=== PATIENT | female | born 1945 | race Caucasian/White ===

== ENCOUNTER 2016-07-15 15:04 | Emergency (ER) | payer OTHER ==
[~2016-07-15] VITALS: Ht 152.4 cm; Wt 86.6 kg
--- NOTE | ~2016-07-15 | EKG ---
[address] [address] [place] [address] ELECTROCARDIOGRAM REPORT Name: ISRAEL RIVERA [id number] Admission: 07/15/16 Attend Phys: Discharge: 07/15/16 Date of : 41 Report #: [id number] THIS REPORT FOR: //name// [facility] ED Test Date: 2016-07-15 Test Time: 15:32:07 Pat Name: ISRAEL RIVERA Department: Room: Gender: F Process Improvement Specialist: Felicita Hoang : 1945 Requested By: Radha Jordan Order Number: [id number] MD: Jesus Navarrete Measurements Intervals [place] Rate: 82 P: 44 WA: 262 QRS: 25 QRSD: 96 T: -7 QT: 369 QTc: 431 Interpretive Statements Sinus rhythm Prolonged WA interval Probable left atrial enlargement Borderline T abnormalities, inferior leads No previous ECG available for comparison Electronically Signed On 07-16-2016 16:40:45 CDT by Jesus Navarrete [email or web address] <ELECTRONICALLY SIGNED> By: Jesus Navarrete MD, [facility] 07/16/16 1640 1532 1532 Jesus Navarrete MD, FACC /EPI
[2016-07-15] MEDS ORDERED: ZANTAC 150MG T150 MG PO (16:27)
[2016-07-15] MEDS ORDERED: FLAX, FISH & B1 EACH PO (16:27)
[2016-07-15] MEDS ORDERED: IBUPROFEN 200200 M1 PO (16:28)
[2016-07-15] MEDS ORDERED: CENTRUM SILVER1 EAC5 PO (16:28)
[2016-07-15] MEDS ORDERED: CALCIUM 600 +1 EAC1 PO (16:29)
[2016-07-15] MEDS ORDERED: VITAMINC500 PO (16:29)
[2016-07-15 16:34] LABS: ABSOLUTE NEUTROPHILS 6.1 thou/uL (1.4-8.2); BASOPHILS 0.4 % (0.0-2.0); EOSINOPHILS 0.4 % (0.0-3.0); HEMATOCRIT 40.7 % (37.0-47.0); HEMOGLOBIN 13.6 gm/dL (12.0-15.0); LYMPHOCYTES 26.7 % (24.0-44.0); MCH 31.9 pg (26.0-34.0); MCHC 33.5 g/dL (28.0-37.0); MCV 95.3 fL (80.0-100.0); MONOCYTES 8.1 % (1.0-8.0); PLATELET COUNT 214 thou/uL (150-400); POLYS 64.4 % (36.0-66.0); RBC 4.27 mil/uL (4.20-5.00); RDW 13.2 % (10.5-14.5); WBC 9.6 thou/uL (4.0-11.0)
[2016-07-15 16:38] LABS: MANUAL DIFF NO
[2016-07-15 16:46] LABS: CALCIUM 9.4 mg/dL (8.5-10.1); CREATININE 0.8 mg/dL (0.6-1.0); POTASSIUM 4.1 mmol/L (3.5-5.1)
[2016-07-15 16:51] LABS: ALBUMIN 3.6 g/dL (3.4-5.0); TOTAL BILIRUBIN 0.4 mg/dL (<0.1-1.0); TOTAL PROTEIN 7.7 g/dL (6.4-8.2)
[2016-07-15 17:13] VITALS: BP 164/68
== END 2016-07-15 17:20 | disposition home or self-care (01) ==
LOC: ER 15:04
PROVIDERS: Physician Assistant
DX: R20.2 Paresthesia of skin (principal); R51 Headache; I10 Essential (primary) hypertension

== ENCOUNTER 2017-12-02 17:59 | Emergency (ER) | payer OTHER ==
[~2017-12-02] VITALS: Ht 157.5 cm; Wt 83.5 kg
--- NOTE | ~2017-12-02 | EKG ---
[address] [address] [facility] [place] [address] ELECTROCARDIOGRAM REPORT Name: ISRAEL RIVERA Room #: [facility] [place]#: [id number] Admission: 12/02/17 Attend Phys: Discharge: 12/02/17 Date of : 41 Report #: [id number] THIS REPORT FOR: //name// [facility] ED Test Date: 2017-12-02 Test Time: 18:37:01 Pat Name: ISRAEL RIVERA Department: Room: Gender: F Educational Program Director: [facility] : 1945 Requested By: Hector Senior Order Number: [id number] MD: Jesus Navarrete Measurements Intervals [place] Rate: 55 P: 0 AR: 220 QRS: 39 QRSD: 96 T: 3 QT: 455 QTc: 436 Interpretive Statements Second degree AV block, Mobitz I Compared to ECG 07/15/2016 15:32:07 Second-degree AV block, Mobitz type I (Tatiana) now present Electronically Signed On 12-04-2017 8:31:41 CDT by Jesus Navarrete [email or web address] <ELECTRONICALLY SIGNED> By: Jesus Navarrete MD, [facility] 12/04/17 0831 183 36 Jesus Navarrete MD, [facility] /EPI
[~2017-12-02 17:59] MED LIST: CALCIUM 600 +1 EAC1 PO; CENTRUM SILVER1 EAC5 PO; FLAX, FISH & B1 EACH PO; IBUPROFEN 200200 M1 PO; VITAMINC500 PO; ZANTAC 150MG T150 MG PO
[2017-12-02] MEDS ORDERED: CLOBETASOL EMOL15 GM TOP (18:10)
[2017-12-02 18:23] LABS: ABSOLUTE NEUTROPHILS 6.8 thou/uL (1.4-8.2); BASOPHILS 0.6 % (0.0-2.0); EOSINOPHILS 0.6 % (0.0-3.0); HEMOGLOBIN 13.5 gm/dL (12.0-15.0); LYMPHOCYTES 23.2 % (24.0-44.0); MCH 32.9 pg (26.0-34.0); MCHC 34.7 g/dL (28.0-37.0); MCV 94.8 fL (80.0-100.0); PLATELET COUNT 234 thou/uL (150-400); POLYS 66.6 % (36.0-66.0); RBC 4.11 mil/uL (4.20-5.00); RDW 12.6 % (10.5-14.5); WBC 10.2 thou/uL (4.0-11.0)
[2017-12-02 18:27] LABS: ANION GAP 9 mmol/L (7-16); BUN 14 mg/dL (7-18); CALCIUM 8.9 mg/dL (8.5-10.1); CHLORIDE 97 mmol/L (98-107); CO2 26 mmol/L (21-32); CREATININE 0.8 mg/dL (0.6-1.0); GLUCOSE 129 mg/dL (74-106); POTASSIUM 3.5 mmol/L (3.5-5.1); SODIUM 132 mmol/L (136-145)
[2017-12-02 18:35] LABS: ALBUMIN 3.3 g/dL (3.4-5.0); LIPASE 256 U/L (73-393); SGOT 21 U/L (15-37); SGPT 24 U/L (30-65); TOTAL BILIRUBIN 0.4 mg/dL (<0.1-1.0); TOTAL PROTEIN 7.7 g/dL (6.4-8.2); TROPONIN-I <0.06 ng/mL (<0.06)
[2017-12-02 18:48] LABS: URINE BILIRUBIN NEGATIVE (Negative); URINE BLOOD TRACE (Negative); URINE COLOR YELLOW; URINE GLUCOSE-RANDOM* NEGATIVE (Negative); URINE KETONES NEGATIVE (Negative); URINE PROTEIN (DIPSTICK) NEGATIVE (Negative); URINE UROBILINOGEN 0.2 E.U./dl (0.2-1.0)
[2017-12-02 18:49] LABS: URINE CLARITY HAZY; URINE LEUKOCYTES-REFLEX 1+ (Negative); URINE NITRITE-REFLEX POSITIVE (Negative)
[2017-12-02 19:01] LABS: SQUAMOUS >10 Many /LPF (0-3); URINE WBC-REFLEX >25 Many /HPF (0-5)
[2017-12-02 19:02] LABS: BACTERIA-REFLEX >30 Many /HPF (None Seen); CASTS None Seen /LPF (None Seen); CRYSTALS None Seen /LPF (None Seen); URINE RBC 0-2 Rare /HPF (0-2)
[2017-12-02] MEDS ORDERED: PRILOSEC 20 MG20 MG PO (19:26)
[2017-12-02] MEDS ORDERED: TRAMADOL 50 MG50 MG PO (19:26)
[2017-12-02] MEDS ORDERED: KEFLEX500 M1 PO (19:44)
== END 2017-12-02 19:55 | disposition home or self-care (01) ==
LOC: ER 17:59
PROVIDERS: Emergency Medicine
DX: J98.11 Atelectasis (principal); I10 Essential (primary) hypertension; I44.1 Atrioventricular block, second degree; N39.0 Urinary tract infection, site not specified; M47.899 Other spondylosis, site unspecified

== ENCOUNTER 2019-09-06 10:34 | Emergency (ER) | payer OTHER ==
[~2019-09-06] VITALS: Ht 162.6 cm; Wt 77.1 kg
[~2019-09-06 10:34] MED LIST changes: +CLOBETASOL EMOL15 GM TOP; +KEFLEX500 M1 PO; +PRILOSEC 20 MG20 MG PO; +TRAMADOL 50 MG50 MG PO
[2019-09-06 11:25] LABS: ABSOLUTE NEUTROPHILS 6.9 thou/uL (1.4-8.2); BASOPHILS 0.3 % (0.0-2.0); EOSINOPHILS 0.1 % (0.0-3.0); HEMATOCRIT 42.1 % (37.0-47.0); HEMOGLOBIN 14.6 gm/dL (12.0-15.0); LYMPHOCYTES 13.8 % (24.0-44.0); MCH 33.1 pg (26.0-34.0); MCHC 34.7 g/dL (28.0-37.0); MCV 95.6 fL (80.0-100.0); PLATELET COUNT 243 thou/uL (150-400); POLYS 76.8 % (36.0-66.0); RBC 4.41 mil/uL (4.20-5.00); RDW 12.6 % (10.5-14.5); WBC 8.9 thou/uL (4.0-11.0)
[2019-09-06 11:37] LABS: CALCIUM 8.9 mg/dL (8.5-10.1); CREATININE 0.7 mg/dL (0.6-1.0); POTASSIUM 3.9 mmol/L (3.5-5.1)
[2019-09-06 11:44] LABS: ALBUMIN 3.5 g/dL (3.4-5.0); TOTAL BILIRUBIN 0.6 mg/dL (0.2-1.0); TOTAL PROTEIN 8.1 g/dL (6.4-8.2)
[2019-09-06 13:06] LABS: URINE BILIRUBIN NEGATIVE (Negative); URINE BLOOD 1+ (Negative); URINE CLARITY CLEAR; URINE COLOR YELLOW; URINE GLUCOSE-RANDOM* NEGATIVE (Negative); URINE KETONES NEGATIVE (Negative); URINE LEUKOCYTES-REFLEX 1+ (Negative); URINE NITRITE-REFLEX NEGATIVE (Negative); URINE PROTEIN (DIPSTICK) NEGATIVE (Negative); URINE UROBILINOGEN 0.2 E.U./dl (0.2-1.0)
[2019-09-06 13:14] LABS: BACTERIA-REFLEX >30 Many /HPF (None Seen); CRYSTALS None Seen /LPF (None Seen); SQUAMOUS 0-3 Few /LPF (0-3); URINE RBC None Seen /HPF (0-2); URINE WBC-REFLEX >25 Many /HPF (0-5)
[2019-09-06] MEDS ORDERED: KEFLEX500 M1 PO (16:26)
[2019-09-06 16:42] VITALS: BP 153/68
== END 2019-09-06 16:49 | disposition home or self-care (01) ==
LOC: ER 10:34
PROVIDERS: Emergency Medicine
DX: S42.252A Displaced fracture of greater tuberosity of left humerus, initial encounter for closed fracture (principal); N39.0 Urinary tract infection, site not specified; I10 Essential (primary) hypertension; Z79.899 Other long term (current) drug therapy; W18.39XA Other fall on same level, initial encounter; Y93.89 Activity, other specified; Y92.89 Other specified places as the place of occurrence of the external cause; Y99.8 Other external cause status

== ENCOUNTER 2019-09-24 18:38 | Inpatient (IN) | payer OTHER ==
[~2019-09-24] VITALS: Ht 149.9 cm; Wt 68.9 kg
[2019-09-24 18:50] VITALS: BP 141/78
[2019-09-24 22:51] LABS: URINE BILIRUBIN NEGATIVE (Negative); URINE BLOOD 1+ (Negative); URINE CLARITY CLEAR; URINE COLOR YELLOW; URINE GLUCOSE-RANDOM* NEGATIVE (Negative); URINE KETONES NEGATIVE (Negative); URINE NITRITE-REFLEX NEGATIVE (Negative); URINE PROTEIN (DIPSTICK) NEGATIVE (Negative); URINE UROBILINOGEN 0.2 E.U./dl (0.2-1.0)
[2019-09-24] MEDS ORDERED: TYLENOL EXTRA500 MG PO (22:55)
[2019-09-24] MEDS ORDERED: PROBIOTIC1 EAC6 PO (22:56)
[2019-09-24] MEDS ORDERED: ALEVE220 MG PO (22:56)
[2019-09-24 22:58] LABS: URINE LEUKOCYTES-REFLEX 1+ (Negative)
[2019-09-24 23:03] LABS: BASOPHILS 0.3 % (0.0-2.0); EOSINOPHILS 0.1 % (0.0-3.0); HEMATOCRIT 39.7 % (37.0-47.0); HEMOGLOBIN 13.6 gm/dL (12.0-15.0); LYMPHOCYTES 18.1 % (24.0-44.0); MCH 32.9 pg (26.0-34.0); MCHC 34.3 g/dL (28.0-37.0); MONOCYTES 10.3 % (1.0-8.0); PLATELET COUNT 201 thou/uL (150-400); POLYS 71.2 % (36.0-66.0); RBC 4.13 mil/uL (4.20-5.00); WBC 11.2 thou/uL (4.0-11.0)
[2019-09-24 23:24] LABS: BACTERIA-REFLEX 1-9 Few /HPF (None Seen); CASTS None Seen /LPF (None Seen); CRYSTALS None Seen /LPF (None Seen); MUCUS 0-3 Light strn/LPF (None Seen); SQUAMOUS 4-10 Moderate /LPF (0-3); URINE RBC 3-10 Few /HPF (0-2); URINE WBC-REFLEX 6-15 Few /HPF (0-5)
[2019-09-24 23:26] LABS: CALCIUM 8.2 mg/dL (8.5-10.1); CREATININE 0.7 mg/dL (0.6-1.0); POTASSIUM 3.8 mmol/L (3.5-5.1)
[2019-09-25 00:49] VITALS: BP 163/80
[2019-09-25 01:20] VITALS: BP 158/79
[2019-09-25 02:00] VITALS: BP 168/62
--- NOTE | 2019-09-25 03:58 | NUR ---
PT ARRIVED FROM THE ER @0130 A&OX2 FORGETFULL WAS ABLE TO ANSWER BASIC QUESTION. ADMISSION DONE AND PT ORIENTED TO THE UNIT. IV INTACT AND FLUIDS INFUSING. LEFT SHOULDER SLING INTACT. MORPHINE GIVEN FOR PAIN. RIGHT UPPER ARM BRUISE NOTED. SCDS IN PLACE. PT HOME WHEELCHAIR AT BEDSIDE. FALL PREC IN PLACE AND CALL LIGHT IN REACH WILL CONT TO MONITOR
[2019-09-25 06:12] LABS: URINE BILIRUBIN NEGATIVE (Negative); URINE BLOOD TRACE (Negative); URINE CLARITY CLEAR; URINE COLOR YELLOW; URINE GLUCOSE-RANDOM* NEGATIVE (Negative); URINE KETONES NEGATIVE (Negative); URINE LEUKOCYTES-REFLEX NEGATIVE (Negative); URINE NITRITE-REFLEX NEGATIVE (Negative); URINE PROTEIN (DIPSTICK) NEGATIVE (Negative); URINE SPECIFIC GRAVITY <= 1.005 (1.005-1.035); URINE UROBILINOGEN 0.2 E.U./dl (0.2-1.0)
[2019-09-25 06:46] LABS: MCH 32.5 pg (26.0-34.0); MCHC 33.3 g/dL (28.0-37.0); MCV 97.6 fL (80.0-100.0); RBC 3.99 mil/uL (4.20-5.00); RDW 13.4 % (10.5-14.5); WBC 8.5 thou/uL (4.0-11.0)
[2019-09-25 07:13] LABS: CALCIUM 8.5 mg/dL (8.5-10.1); CREATININE 0.5 mg/dL (0.6-1.0); POTASSIUM 3.7 mmol/L (3.5-5.1)
[2019-09-25 11:32] VITALS: BP 184/79
--- NOTE | 2019-09-25 16:08 | NUR ---
ASSESSMENT: CM REVIEWED CHART. PT WAS ADMITTED AFTER A FALL AT HOME AND COMPLAINING OF RIGHT SHOULDER PAIN. PT JUST RECENTLY HAD A PREVIOUS FALL ON 09/05 AND HER LEFT SHOULDER IS IN AN IMMOBLIZER. PT LIVES AT HOME WITH HER DAUGHTER ISRAEL. CM SPOKE WITH ISRAEL. SHE REPORTS THAT THEY HAVE NO STEPS TO ENTER THE HOME OR ONCE INSIDE. SHE REPORTS PATIENT NORMALLY USES A CANE OR WALKER BUT SINCE SHE HAD THE IMMOBILIZER ON THAT THEY HAD BEEN TRYING TO HELP HER AROUND THE HOUSE AND SHE HAS A WHEELCHAIR. DAUGHTER REPORTS THAT SHE DOES NOT HAVE HH AND HAS NOT BEEN TO A SNF IN THE PAST. PT/OT ORDERED BUT WAITING ON INPUT FROM [facility]. CM WILL CONTINUE TO FOLLOW TO ASSIST NEEDED.
--- NOTE | 2019-09-25 19:45 | NUR ---
PT CARE ASSUMED AT 0700. A&Ox2. FORGETFUL. IV PATENT WITH NO REDNESS OR EDEMA, FLUIDS INFUSING. SCD'S IN PLACE. SLING ON L. SHOULDER. PAIN WELL CONTROLLED WITH PAIN MEDICATION ON BOARD. BM TODAY. EXTERNAL ANDERSEN IN PLACE. COVID TEST PENDING. CT COMPLEETED. RESULTS PENDING. FALL RISK IN PLACE. CALL LIGHT IN PLACE.
[2019-09-25 20:00] VITALS: BP 156/67
--- NOTE | 2019-09-26 02:48 | NUR ---
PT ASSESSED AT START OF SHIFT A&OX3. IV INTACT AND FLUIDS INFUSING. TRAMADOL GIVEN FOR SHOULDER PAIN. EXT FEMALE CATH IN PLACE AND DRAINING. SCD'S, FALL PREC IN PLACE WILL CONT TO MONITOR.
[2019-09-26 03:43] VITALS: BP 154/60
[2019-09-26 07:45] VITALS: BP 152/62
[2019-09-26 08:09] LABS: ALBUMIN 2.5 g/dL (3.4-5.0); CALCIUM 8.2 mg/dL (8.5-10.1); CREATININE 0.5 mg/dL (0.6-1.0); MAGNESIUM 1.7 mg/dL (1.8-2.4); POTASSIUM 3.9 mmol/L (3.5-5.1); TOTAL BILIRUBIN 0.8 mg/dL (0.2-1.0); TOTAL PROTEIN 6.3 g/dL (6.4-8.2)
--- NOTE | 2019-09-26 15:53 | NUR ---
ON-GOING ASSESSMNT: CM REVIEWED CHART. AWAITIONG FURTHER PLANS FROM [facility] PRIOR TO PT WORKING WITH PT/OT. AWAITING THERAPIES TO DETERMINE DISCHARGE NEEDS POSSIBLE SNF PLACEMENT. CM WILL CONTINUE TO FOLLOW,
[2019-09-26 16:00] VITALS: BP 184/80
[2019-09-26 19:48] VITALS: BP 169/62
--- NOTE | 2019-09-27 03:13 | NUR ---
ASSESSED AT START OF SHIFT 1900. PT RESTING IN BED. PAIN MANAGED WITH PO TRAMADOL. SLING NOW ON THE RT SHOULDER PER [facility] DURING THE DAY. EXT FOLLEY CATH INTACT AND DRAINING. FALL PREC IN PLACE. PT SLEPT THROUGH THE NIGHT WILL CONT TO MONITOR.
[2019-09-27 05:16] VITALS: BP 153/87
[2019-09-27 09:15] VITALS: BP 136/72
--- NOTE | 2019-09-27 10:33 | NUR ---
Assumed care of pt at 0700. Pt plesantly confused. Pain controlled with prn pain meds. Shoulder immobilized in place. External female catheter in place. Possible d/c to SNF when insurance auth. Fall precautions in place. Will continue to monitor.
--- NOTE | 2019-09-27 12:17 | NUR ---
ON-GOING ASSESSMENT: CM REVIEWED AND SPOKE WITH ATTENDING. RECOMMENDATIONS ARE FOR SNF. CM DISCUSSED THIS WITH PATIENT AND HER DAUGHTER. DAUGHTER ISRAEL REPORTS THEY HAD A FAMILY FRIEND THAT HAS BEEN TO [facility] BEFORE AND PREFER THERE. [facility] IS IN NETWORK WITH PATIENTS INSURANCE AND CM SENT REFERRAL. CM HEARD BACK FROM MICHELLE IN ADMISSIONS WHO REPORTS THEY CAN MEDICALLY ACCEPT PATIENT AND THEY HAD STARTED THE INSURANCE AUTH PROCESS. CM NOTIFIED PT AND DAUGHTER THAT WE ARE JUST AWAITING AUTH AT THIS TIME. CM FAXED NEGATIVE COVID TEST TO FACILITY. DAUGHTER IS ALSO REQUESTING DPOA PAPERWORK AND CM PROVIDED A PACKET AND PLACED IN PATIENTS ROOM FOR THEM TO COMPLETE AND NOTIFY BEDSIDE RN TO PAGE A NOTARY WHEN DONE. CM VERIFIED WITH ATTENDING THAT PT CAN APPOINT A DPOA AT [facility]. CM WILL AWAIT FURTHER INPUT FROM [facility]. CHART COPY ORDERED.
--- NOTE | 2019-09-27 15:28 | NUR ---
ON-GOING ASSESSMENT: PHYSICAL THERAPY WAS ABLE TO WORK WITH PATIENT TODAY AND RECOMMENDATIONS IS FOR POST ACUTE CARE AT DISCHARGE. DANIELLA DISCUSSED THIS WITH PATIENT AND HER DAUGHTER ISRAEL. DAUGHTER REPORTS THAT SHE WILL HAVE TO REVIEW THE LIST AND CHECK OUT THE REVIEWS ON THE FACILITIES. CM DISCUSSED OPTIONS WITH HER AND SHE REPORTS HAVING A FAMILY FRIEND THAT HAD BEEN TO [facility] AND WANTED A REFERRAL SENT THERE. CM FAXED REFERRAL AND LEFT VM WITH [facility] IN ADMISSIONS. SHE REPORTS THEY ARE FULL THIS WILL BUT WILL HAVE TO CHECK BACK ON MONDAY. CM NOTIFIED PATIENTS DAUGHTER AND SHE IS GOING TO FURTHER REVIEW OTHER OPTIONS SO CM CAN SEND OUT REFERRALS. CURRENTLY AWAITING OTHER OPTIONS AT THIS TIME AND THEN WILL HAVE TO SEEK INSURANCE AUTH. DAUGHTER ASKED ABOUT DPOA PAPERWORK AND WANTING TO COMPLETE IT. CM PROVIDED A PACKED AND DPOA FORM IN PTS ROOM IF THEY WISH TO COMPELTE. DANIELLA SPOKE WITH ATTENDING WHO STATES PT IS CAPABLE OF APPOINTING DPOA. NO LIKELY WEEKEND DISCHARGE AWAITING PLACEMENT/INSURANCE AUTH.
[2019-09-27 16:11] VITALS: BP 148/73
[2019-09-27 19:50] VITALS: BP 150/61
--- NOTE | 2019-09-27 23:39 | NUR ---
ASSUMED PT CARE AT 1900.PT'S DTR AT BEDSIDE AT SHIFT CHANGE.PT'S DTR VOICED CONCERN ABOUT HER MOM HAVING DIFFICULTY USING THE CALL LIGHT,ORDER PUT IN FOR A SOFT TOUCH CALL LIGHT.PT EDUCATED ON HOW TO USE IT WHEN IT WAS INSTALLED.PT LATER STATED THAT SHE DOEN'T KNOW IF THE SOFT TOUCH CALL LIGHT WORKS.PT WAS REASSURED THAT IT WORKS AND SHE TRIED IT OUT BUT SHE STILL WANTS TO STICK WITH THE REG. CALL LIGHT.FEMALE EXT CATH IN PLACE WITH YELLOW URINE NOTED IN THE CANNISTER.PT DENIED PAIN SO FAR.BRUISING NOTED ON PT'S R EYE.IMMOBILIZER TO HER R ARM.PT REPOSITIONED WHILE IN BED.PT SLEEPING AT THIS TIME.FALL PRECAUTIONS IN PLACE,CALL LIGHT WITHIN REACH.
[2019-09-28 02:59] VITALS: BP 149/69
[2019-09-28 08:11] VITALS: BP 148/60
[2019-09-28 16:15] VITALS: BP 93/77
--- NOTE | 2019-09-28 16:45 | NUR ---
Assumed care of pt at 0700. Pt alert but forgetful at times. Denies pain when laying in bed. Frequent urination and one bowel movement in the shift. Shoulder immobilizer in place. Family at bedside. Soft-touch call light within reach. Fall precautions in place. Q2h turn. Will continue to monitor.
[2019-09-28 19:36] VITALS: BP 148/74
--- NOTE | 2019-09-29 01:46 | NUR ---
ASSUMED PT CARE AT APPROX 1900.PT ALERT/FORGETFUL.PT VERY RESTLESS AT HS.PT C/O IMMOBILZER IN PLACE,WANTED THE IT OFF,PT EDUCATED ON THE NEED TO HAVE IMMOBILIZER ON.PO FLUIDS ENCOURAGED.PT WITH ADEQUATE URINE OUTPUT.PT C/O PAIN,MANAGED WITH MED.PT REPOSITIONED WHILE IN BED.CSD IN PLACE TO BLE.IV ABX INFUSIONG ORDERED.PT RESTING ON HER BED AT THIS TIME.FALL PREACUTIONS IN PLACE,CALL LIGHT WITHIN REACH.
[2019-09-29 02:30] VITALS: BP 154/70
[2019-09-29 05:43] LABS: HEMATOCRIT 37.9 % (37.0-47.0); HEMOGLOBIN 12.9 gm/dL (12.0-15.0); MCH 33.3 pg (26.0-34.0); MCHC 34.2 g/dL (28.0-37.0); MCV 97.5 fL (80.0-100.0); RBC 3.89 mil/uL (4.20-5.00); RDW 12.9 % (10.5-14.5); WBC 8.8 thou/uL (4.0-11.0)
[2019-09-29 05:57] LABS: CALCIUM 8.3 mg/dL (8.5-10.1); CREATININE 0.6 mg/dL (0.6-1.0); POTASSIUM 4.1 mmol/L (3.5-5.1)
[2019-09-29 10:14] VITALS: BP 155/78
[2019-09-29 16:30] VITALS: BP 134/62
--- NOTE | 2019-09-29 19:27 | NUR ---
Alert, calm and cooperative. afebrile. denied pain. urinated frequently.
[2019-09-29 19:35] VITALS: BP 145/58
--- NOTE | 2019-09-30 05:54 | NUR ---
PATIENT ALERT AND ORIENTED X4 WITH FORGETFULNESS. FEMALE EXTERNAL CATHETER IN PLACE, HOWEVER, PATIENT STILL CALLS FOR BEDPAN AT TIMES. IV ABX INFUSED W/O COMPLICATION. IMMOBILIZER TO RIGHT ARM. BOTH ARMS ARE FRACTURED DUE TO A FALL. PATIENT IS TOTAL CARE. WILL MONITOR. RESTING QUIETLY.
[2019-09-30 07:06] VITALS: BP 156/61
--- NOTE | 2019-09-30 12:04 | NUR ---
CM FOLLOWED UP WITH [facility] THIS AM AND THEY INDICATED STILL NO OPEN BEDS. CM CALLED AND NOTIFIED PT'S DTR AND SHE ASKED THAT REFERRAL BE SENT TO [facility] FOR REVIEW FOR POSSIBLE ADMISSION. REFERRAL SENT. [facility] CM TO FOLLOW INDICATED WITH DC PLANNING.
[2019-09-30 15:27] VITALS: BP 141/74
--- NOTE | 2019-09-30 15:50 | HC ---
[facility] [place] [address] CONSULTATION Name: ISRAEL RIVERA Room #: 461- ADM IN M.R.#: [id number] Admission: 09/24/19 Attend Phys: Adria Quesada, Discharge: Date of : 41 Report #: [id number] THIS REPORT FOR: cc: Tom Carmona MD,Jose L Ocasio MD, MD ~ CC: Adria Carmona REASON FOR CONSULTATION: Bilateral shoulder fractures. HISTORY OF PRESENT ILLNESS: The patient is a 74-year-old female who sustained a left proximal humerus fracture on 09/06/2019. She has been placed in a shoulder immobilizer for this. This was nonoperative treatment. She had another fall earlier this week and was brought to the ER and found to have a right proximal humerus fracture. We have been asked to consult for bilateral proximal humerus fractures. PAST MEDICAL HISTORY: Have been reviewed and are on the chart. MEDICATIONS: Have been reviewed on the chart. PHYSICAL EXAMINATION: GENERAL: This is a frail-appearing female in no acute distress. EXTREMITIES: Examination of right upper extremity shows her to have significant bruising and ecchymosis around the proximal shoulder. Range of motion was not tested secondary to underlying fracture. She is neurovascularly intact. Left shoulder shows him to have a shoulder immobilizer in place. The range of motion was not tested secondary to underlying fracture. She is neurologically intact. X-RAY EXAMINATION: AP and lateral of the right shoulder showed to have a minimally displaced surgical neck fracture of the proximal humerus. X-rays of the left shoulder and CT scan from the end of August showed to have a nondisplaced surgical neck fracture. ASSESSMENT: 1. Right acute surgical neck fracture of the proximal humerus. 2. Subacute surgical neck fracture, proximal left humerus. PLAN: We will get a CT scan of the right shoulder to determine if this actually need surgery or not. My suspicion is that this can be treated nonoperatively. We will continue nonoperative treatment of the left proximal humerus fracture. She will likely need significant nursing care. She will be nonweightbearing on her bilateral upper extremities and have difficulty with transfers and self-care. We will make further recommendations after CT scan of her proximal humerus on the right is performed. [address] [address] CONSULTATION Name: ISRAEL RIVERA Room #: 461-P [facility] IN .R.#: [id number] Admission: 09/24/19 Attend Phys: Adria Quesada, Discharge: Date of : 41 Report #: [id number] Thank you for allowing us to participate in care of the patient. <ELECTRONICALLY SIGNED> By: Jose L Bowles MD 09/30/19 1550 1721 21 Jose L Bowles MD /nt
--- NOTE | 2019-09-30 15:55 | NUR ---
FAXED REFERRAL TO [facility] SPOKE WITH ZEB IN ADM SHE RECEIVED REFERRAL AND CAN ACCEPT AND WILL SUBMIT FOR AUTH. DP TO FOLLOW.
--- NOTE | 2019-09-30 16:07 | NUR ---
[facility] IS ABLE TO ACCEPT PT AND THEY HAVE INSURANCE AUTH. THEY ARE ABLE TO ACEPT PT TOMORROW THEY NEED FOR A PT TO DISCHARGE IN ORDER TO ACCEPT HER. [facility] TRANSPORT IS ARRANGED FOR 11:00. ORDERS WILL NEED TO BE FAXED TO REPORT TO BE CALLED TO . PT AND DTR ARE AWARE AND AGREEABLE. CHART COPY ORDERD. ORDERS TO BE FAXED ONCE COMPLETED.
--- NOTE | 2019-09-30 20:13 | NUR ---
Assumed pt care at 7am.Pt in bed at alltimes today with immobilized to rt arm Assessment completed.vss.[employer] fed pt at all meals and good appetite noted.Pt voids per urinal as needed.Dtr here to visit later this evening,updates given [facility].Will continue to monitor.
[2019-09-30 20:46] VITALS: BP 168/60
--- NOTE | 2019-10-01 05:17 | NUR ---
PT IS ALERT TO SELF AND SITUATION. PT BECOMES FORGETFUL. VSS. IV IS IN RIGHT FOREARM. PT IS INCONTINENT. PT IS A TOTAL CARE. PT COMPLAINS OF PAIN BUT COULD NOT RATE IT. PT DOES NOT CALL OUT APPROPRIATELY. PT IS SLEEP IN HER ROOM. WILL CONTINUE TO MONITOR.
[2019-10-01 08:02] VITALS: BP 148/59
--- NOTE | 2019-10-01 11:13 | NUR ---
PT DISCHARGING TODAY TO [facility] FOR SKILLED STAY FAXED DC ORDERS/SUMMARY TO FACILITY RECEIVED CONFIRMATION AND SPOKE WITH ZEB IN ADM SHE RECEIVED ORDERS AND ARRANGED TRANSPORTATION BY [facility] FOR 12OO.
--- NOTE | 2019-10-01 11:29 | NUR ---
PT IS TO DC TO [facility] THIS DAY. CHART COPY ORDERED. ORDERS FAXED. CM NOTIFIED PT AND PT'S DTR. [facility]SPORT ARRANGED FOR 1200. REPORT TO BE CALLED TO . NO OTHER CM INTERVENTION INDICATED. CASE CLOSED.
--- NOTE | 2019-10-01 12:39 | NUR ---
PT IS AOX4, SOME FORGETFULNESS AT TIMES. PT VSS, NO C/O PAIN AT THIS TIME. PT IV D/C BEFORE DISCHARGE. PT RECEIVED DC INSTRUCTIONS AND VERBALIZED UNDERSTANDING. PT WAS PICKED UP BY [facility]. PERSONAL BELONGINGS TRANSFERRED WITH PT.
== END 2019-10-01 12:54 | DRG 562 ==
LOC: ER 18:38 → EROBS 23:38 → 4S 23:38 → EROBS 23:38 → 4S 09-25 01:30 → 4W 09-29 10:56
PROVIDERS: Emergency Medicine; Hospitalist; Nurse Practitioner Family; ADMIT Surgery; ATTEND Surgery
DX: S42.301A Unspecified fracture of shaft of humerus, right arm, initial encounter for closed fracture (principal); G93.41 Metabolic encephalopathy; S42.292A Other displaced fracture of upper end of left humerus, initial encounter for closed fracture; E87.1 Hypo-osmolality and hyponatremia; N39.0 Urinary tract infection, site not specified; W18.39XA Other fall on same level, initial encounter; I10 Essential (primary) hypertension; G62.9 Polyneuropathy, unspecified; S00.83XA Contusion of other part of head, initial encounter; F03.90 Unspecified dementia, unspecified severity, without behavioral disturbance, psychotic disturbance, mood disturbance, and anxiety; F32.9 Major depressive disorder, single episode, unspecified; Z87.440 Personal history of urinary (tract) infections; Y99.8 Other external cause status; Y93.89 Activity, other specified; Y92.89 Other specified places as the place of occurrence of the external cause; Z79.899 Other long term (current) drug therapy; Z11.59 Encounter for screening for other viral diseases
CPT/HCPCS: 10047; 10195